=== PATIENT | female | born 1965 | race Caucasian/White ===

== ENCOUNTER → 2017-07-29 | Outpatient (CLI) | payer BC, OTHER ==
[~2017-07-29] VITALS: Ht 160 cm; Wt 129.2 kg
[~2017-07-29] MED LIST: ASCO500C43 PO; ASPCH81X PO; CEPH500C PO; CITA20TA4 PO; EPP3/2 IM; LORA-741 PO; LOSA100T2 PO; OMEGCAP2 PO; PANT40TA PO; VNTHFA/IN INH
[2017-07-29 16:15] VITALS: BP 138/83; PULSE 88; Ht 160 cm; Wt 129.2 kg
== END | disposition home or self-care (01) ==
LOC: C.NEUR 14:41
PROVIDERS: ATTEND Internal Medicine Pulmonary Disease
DX: G47.33 Obstructive sleep apnea (adult) (pediatric) (principal); J45.20 Mild intermittent asthma, uncomplicated; J30.9 Allergic rhinitis, unspecified

== ENCOUNTER 2018-02-26 20:46 | Emergency (ER) | payer BC ==
[~2018-02-26] VITALS: Ht 160 cm; Wt 124.8 kg
[~2018-02-26 20:46] MED LIST changes: -CEPH500C PO
[2018-02-26 21:03] VITALS: TEMP 37; Ht 160 cm; Wt 124.8 kg
[2018-02-26] MEDS ORDERED: CEPH500C PO (21:45)
[2018-02-26] MEDS ORDERED: CEPHALEXIN 500MG HOME PACK 1 EA BTL PO ONE (21:45)
[2018-02-26 22:07] VITALS: BP 137/80; PULSE 75; O2SAT 93
--- NOTE | 2018-02-26 23:38 | EMERGENCY ROOM VISIT NOTE ---
History First contact with patient: 21:16 Chief Complaint: LEG PAIN,LEG INJURY Stated Complaint: LEG PAIN FROM BITES, HOT, SORE History of Present Illness The patient is a 52 year old female who presents to the Emergency Room with complaints of left leg redness, swelling, burning and itching. The patient reports that she noticed it look like bug bites on her legs last evening. They then started to get hot and itchy. Today she woke up with redness around the entire leg. She denies any other lesions on the other leg, upper extremities, torso or head. She denies using any new topical products. She denies any preceding leg injuries, rash or history of skin infections. She rates her discomfort a 4 out of 10. Review of Systems 10 system review was performed and was negative except for pertinent positives and negatives as indicated in history of present illness Past Medical/Surgical History Medical Problems: (1) HYPERLIPIDEMIA NEC/NOS (2) Panic disorder Family History Heart disease Stroke Social History Smoking Status: Never Smoker Marital Status: Housing Status: lives with family Occupation Status: unemployed Current/Historical Medications Scheduled Ascorbic Acid (Vitamin C 500 mg), 1 DOSE PO QAM Aspirin (Aspirin Chewable), 81 MG PO QAM Cephalexin Monohydrate (Keflex), 500 MG PO QID Citalopram Hydrobromide (Citalopram Hydrobromide), 0.5 TAB PO QAM Epinephrine (Epipen), 0.3 MG IM UD Losartan Potassium & Hydrochlo (Hyzaar), 1 TAB PO QAM [place]-3 Fatty Acids (Fish Oil), 2 CAP PO QAM Pantoprazole (Protonix), 40 MG PO QAM Scheduled PRN Albuterol Hfa (Ventolin Hfa), 2-4 PUFFS INH Q6H PRN for Shortness of Breath Lorazepam (Ativan), 0.5 MG PO TID PRN for PANIC ATTACK Physical Exam Vital Signs Date Time Temp Pulse Resp B/P (MAP) Pulse Ox O2 Delivery O2 Flow Rate FiO2 02/26/18 22:07 75 137/80 93 02/26/18 21:03 37.0 80 18 159/79 93 Room Air Physical Exam CONSTITUTIONAL: Morbidly obese female, alert and oriented X 3 with positive affect. HEENT: Normocephalic, atraumatic. Pupils equal, round and reactive. NECK: Full active range of motion without discomfort. CARDIOVASCULAR: Regular rate and rhythm with no murmurs, rubs or gallops. MUSCULOSKELETAL: Examination shows no worsening discomfort with range of motion of the left knee or ankle. Left pedal pulses are intact. INTEGUMENTARY: Examination of the left leg shows several papular lesions with surrounding erythema. The erythema does anamaria with pressure. She has generalized erythema around the entire leg. There is minimal warmth to palpation. No fluctuance, desquamation, bullae, vesicles or pustules. Pedal pulses are intact. The patient has no other involvement of the other extremities or other exposed areas. NEUROLOGIC: Left foot and toes are sensory intact. Medical Decision & Procedures Medications Administered Medications (Trade) Dose Ordered Sig/Tianna Route Start Time Stop Time Status Last Admin Dose Admin Cephalexin Monohydrate (Keflex 500MG Home Pack) 1 homepack NOW ONCE PO 02/26/18 21:45 02/26/18 21:46 DC 02/26/18 22:01 1 HOMEPACK ED Course Patient history and physical exam were performed. Nurse's notes were reviewed. Vital signs were reviewed. Patient was advised that clinical findings are more consistent with insect bites. They do anamaria with pressure, and I suspect a histamine reaction. I did explain, however, that this could also be cellulitis. The patient will be provided a prescription for Keflex. She was instructed to return to the emergency department for any progressively worsening redness, swelling, pain or fever. She was encouraged to intermittently apply ice and elevate the leg for additional swelling relief. She may also take Benadryl as needed for itch. She was encouraged to follow-up with her PCP if the rash is not improving within the next several days. The patient was happy with plan of care, and voiced understanding of all discharge instructions, rating her pain a 3 out of 10 at the conclusion of exam. Medical Decision See previous section Medication Reconcilliation Current Medication List: was personally reviewed by me Blood Pressure Screening Patient's blood pressure: Normal blood pressure Impression Primary Impression: Insect bite of left leg Departure Information Dispostion Home / Self-Care Condition GOOD Prescriptions Cephalexin Monohydrate (Keflex) 500 Mg Cap 500 MG PO QID for 7 Days, #28 CAP Prov: Hermann Epperson PA 02/26/18 Forms HOME CARE DOCUMENTATION FORM, IMPORTANT VISIT INFORMATION Patient Instructions My [facility] Additional Instructions Intermittently apply ice/cool compress and elevate leg for swelling. Complete all Keflex antibiotics as prescribed. Ibuprofen or Tylenol as needed for pain. Return to the emergency department for any progressively worsening redness, swelling, pain or fever. Problem Qualifiers Primary Impression: Insect bite of left leg Encounter type: initial encounter Qualified Codes: S80.862A - Insect bite ( nonvenomous), left lower leg, initial encounter; W57.XXXA - Bitten or stung by nonvenomous insect and other nonvenomous arthropods, initial encounter
== END 2018-02-26 22:07 | disposition home or self-care (01) ==
LOC: C.EDB 20:47 → C.EDD 22:07
DX: S80.862A Insect bite (nonvenomous), left lower leg, initial encounter (principal); E78.5 Hyperlipidemia, unspecified; Z79.82 Long term (current) use of aspirin; Z79.899 Other long term (current) drug therapy; W57.XXXA Bitten or stung by nonvenomous insect and other nonvenomous arthropods, initial encounter